=== PATIENT | male | born 1960 | race African-American/Black ===

== ENCOUNTER 2024-09-27 03:28 | Emergency (ER) | payer MEDICAID, OTHER ==
[~2024-09-27] VITALS: Ht 177.8 cm; Wt 114.0 kg
[2024-09-27 03:30] VITALS: TEMP 36.7; O2SAT 98
[2024-09-27] MEDS ORDERED: KETOROLAC 15MG/ML VIAL IM ONE (04:00)
[2024-09-27] MEDS ORDERED: LIDOCAINE 5% PATCH TOP SCH (04:00)
[2024-09-27] MEDS ORDERED: CYCLOBENZAPRINE 10MG TABLET PO ONE (04:00)
[2024-09-27 06:45] VITALS: BP 147/104; PULSE 73; RESP 14; O2SAT 97
== END 2024-09-27 06:53 | disposition home or self-care (01) ==
LOC: ER 03:28
DX: M54.50 Low back pain, unspecified (principal); M54.2 Cervicalgia; I10 Essential (primary) hypertension; M17.11 Unilateral primary osteoarthritis, right knee; E11.9 Type 2 diabetes mellitus without complications; V89.2XXA Person injured in unspecified motor-vehicle accident, traffic, initial encounter; Y93.89 Activity, other specified; Y92.410 Unspecified street and highway as the place of occurrence of the external cause; Y99.8 Other external cause status
CPT/HCPCS: 72131; 73030; 73562; 99284